=== PATIENT | male | born 1940 | race Two or more races ===

== ENCOUNTER 2024-09-24 10:57 | Emergency (ER) | payer MEDICARE, MEDICAID, SELFPAY ==
[2024-09-24 11:13] VITALS: BP 153/81; PULSE 92; RESP 18; TEMP 37.5; O2SAT 95; BMI 22.6
--- NOTE | 2024-09-24 11:25 | XR_ITS ---
Examination: Foot, right, 3 views Technique: AP, oblique, lateral views foot, 3 views Date and time of exam: September 24, 2024 1143 hrs. Indications: Nonhealing wound involving the first digit this week Findings: The films are severely overpenetrated Prominent osteopenia Suspicious for early cortical erosions ungual tuft tip distal phalanx first digit Impression: Suspicious for early osteomyelitis ungual tuft tip distal phalanx first digit Consider MRI foot without contrast follow-up
--- NOTE | 2024-09-24 11:26 | PD.EDRME ---
Rapid Medical Screening Exam RME Arrival date/time: 09/24/24 10:57 Chief Complaint: Ankle/Foot Injury Time Seen by Provider: 09/24/24 11:05 Vital signs: Vital Signs Temperature 99.5 F 09/24/24 11:13 Pulse Rate 92 09/24/24 11:13 Respiratory Rate 18 09/24/24 11:13 Blood Pressure 153/81 H 09/24/24 11:13 Pulse Oximetry (%) 95 09/24/24 11:13 Oxygen Delivery Method Room Air 09/24/24 11:13 RME Narrative: Redness, pain and wound to right great toe x 2 days. Denies known history of diabetes.
[2024-09-24 12:11] LABS: Basophils % (Auto) 0 % (0-2.5); Eosinophils % (Auto) 0 % (0-10); Hematocrit 41.7 % (41.0-53.0); Hemoglobin 13.9 g/dL (13.5-16.0); Immature Granulocytes % (Auto) 2 % (0-0); Immature Granulocytes Auto 0.19 Thou/mm3 (0.00-0.00); Lymphocytes # (Auto) 0.6 Thou/mm3 (1.0-4.8); Lymphocytes % (Auto) 5 % (10-50); Mean Corpuscular HGB Conc 33.3 g/dl (31.0-37.0); Mean Corpuscular Volume 96 fL (80-100); Monocytes # (Auto) 1.3 Thou/mm3 (0.0-0.8); Monocytes % (Auto) 10 % (0-12); Neutrophils # (Auto) 10.7 Thou/mm3 (1.8-7.7); Neutrophils % (Auto) 84 % (37-80); Nucleated Red Blood Cell % 0 /100 WBC (0); Platelet Count 257 Thou/mm3 (140-440); RDW Standard Deviation 50.6 fL (35.1-43.9); Red Blood Count 4.35 Miln/mm3 (4.50-5.90); White Blood Count 12.8 Thou/mm3 (3.8-10.6)
[2024-09-24 12:42] LABS: Alanine Aminotransferase 22 U/L (10-49); Albumin, Serum 4.5 gm/dL (3.4-4.8); Albumin/Globulin Ratio 2.1 (1.2-2.2); Alkaline Phosphatase 87 U/L (46-116); Anion Gap 4 (7-16); Aspartate Amino Transferase 26 U/L (0-34); BUN/Creatinine Ratio 17 Ratio (12-20); Bilirubin,Total 0.6 mg/dL (0.3-1.2); Blood Urea Nitrogen 10 mg/dL (9-23); C-Reactive Protein 0.5 mg/dL (0.0-0.9); Calcium 9.1 mg/dL (8.3-10.6); Calcium (Corrected) 9.1 mg/dL (8.5-10.1); Carbon Dioxide 25.4 mMol/L (20.0-31.0); Chloride 104 mMol/L (98-107); Creatinine (Component) 0.6 mg/dL (0.6-1.3); Estimated Creatinine Clearance 64.8 mL/min (>60); Globulin 2.1 gm/dL (2.3-3.5); Glucose 89 mg/dL (74-106); Osmolality,Calculated 264 (275-295); Potassium 4.2 mMol/L (3.4-5.1); Procalcitonin < 0.04 ng/ml (0.0-0.49); Sodium 133 mMol/L (136-145); Total Protein 6.6 gm/dL (5.7-8.2); eGFR > 60 See Note
[2024-09-24 12:47] LABS: Sed Rate (ESR) 24 mm/hr (0-20)
--- NOTE | 2024-09-24 12:54 | PC.NURSE ---
PT CAME TO TRIAGE DESK TO ASK IF HE COULD LEAVE AND COME GET RESULTSA ANOTHER DAY. INFORMED THAT XRAY OF FOOT IS ABNORMAL AND HE SHOULD WAIT AND TALK WITH THE DOCTOR. PT STATES THRU CHARACTER ARTIST THAT HE WILL WAIT 30 MORE MINUTES
[2024-09-24 13:38] VITALS: BP 136/78; PULSE 87; RESP 18; TEMP 37.1; O2SAT 95
--- NOTE | 2024-09-24 14:23 | XR_ITS ---
Examination: CTA abdominal aorta iliofemoral runoff. 2-D sagittal coronal reconstructions. 3-D reconstructions, vascular September 24, 2020 1617 hrs. Indications: Redness swelling and pain infection involving the feet and toes this week, diabetic Technique: Multiple CTA images of the abdominal aorta iliofemoral runoff arterial vessels, 2.0 mm slice thickness, post intravenous administration 130 cc Isovue-370 2-D sagittal coronal reconstructions. 3-D reconstructions, vascular 3-D postprocessing, including vascular maximum intensity projection images, 3-D volume rendering Low dose protocols were performed. One or more of the following dose reduction techniques were used; automated exposure control, adjustment of the mA and/or KV according to patient size, use of iterative reconstruction technique. Findings: No renal calculi, hydronephrosis No bowel obstruction or pericecal inflammatory change Right inguinal hernia which contains a portion of the urinary bladder Moderate prostatomegaly Heavy abdominal aortic calcification, transverse dimension infrarenal abdominal aorta 24 mm Heavy calcification common iliac arteries but no significant stenoses Iliac common femoral arteries intact 90% stenosis distal right superficial femoral artery image 287 Right popliteal artery does fill Occlusions, multiple beginning proximal right anterior tibial artery The right posterior tibial artery does fill of the ankle Left superficial femoral artery demonstrates multiple mid 70% plus stenoses and a 90% stenosis in the mid to distal portion, axial image 280 Popliteal artery does fill Similar proximal occlusions of the left anterior tibial artery beginning approximately The left posterior tibial artery does fill to the ankle Impression: 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
--- NOTE | 2024-09-24 14:25 | EDNOTE_ITS ---
<Statement entered by Noemy Jones MD - 09/24/24 19:45> As co-signing physician, I was present and available for consult prn. I concur with the plan and care as documented by the midlevel provider. Lower Extremity Injury RME/HPI General Chief Complaint: Ankle/Foot Injury Stated Complaint: PAIN RIGHT TOE SINCE LAST NIGHT Time Seen by Provider: 09/24/24 11:05 Arrival date/time: 09/24/24 10:57 RME / HPI RME / HPI Narrative: 83-year-old male patient with significant history of hypertension, came in for evaluation regarding right big toe redness and swelling, with extension to the medial aspect of the foot has been ongoing for the last 1 week getting worse last night. Severity of symptoms moderate. Patient denies any fever denies any other complaints no medications taken prior to arrival. Related Data Home Medications ?Medication ?Instructions ?Recorded ?Confirmed diclofenac sodium 75 mg 75 mg PO BID 07/17/23 07/17/23 tablet,delayed release multivitamin 1 tab PO QAM 07/17/23 07/17/23 Previous Rx's ?Medication ?Instructions ?Recorded ibuprofen 600 mg tablet 600 mg PO TID PRN pain #30 tabs 09/24/24 pentoxifylline 400 mg 400 mg PO TID #30 tabs 09/24/24 tablet,extended release sulfamethoxazole 800 1 tab PO Q12H #20 tabs 09/24/24 mg-trimethoprim 160 mg tablet (Bactrim DS) Allergies Allergy/AdvReac Type Severity Reaction Status Date / Time No Known Allergies Allergy Verified 09/24/24 11:04 Review of Systems Review of Systems Narrative Review of Systems: Review of system reviewed and within normal limits except mentioned in HPI ED Exam Narrative Physical exam: VITAL SIGNS: Reviewed. GENERAL APPEARANCE: Alert and interactive, follows commands, no acute distress, HEAD AND FACE: Non-traumatic. ENT: PERRL, pink conjunctivitis, eyelid no trauma, Mucous membrane moist. NECK: Supple, nontender, no nuchal rigidity. CHEST: No tenderness, no crepitus, no paradoxical movement, no retractions. LUNGS: Clear, well ventilated, symmetric, no rales, no wheezing, no ronchi, no stridor, good breath sounds bilaterally. HEART: Regular rate, regular rhythm, no murmur, no gallops. ABDOMEN: Soft, positive bowel sounds, nondistended, no guarding, nontender, no rebound, no masses, RECTAL: Deferred. GENITAL: Deferred. NEUROLOGICAL: Gross motor function intact sensory function intact, Appropriate for age. MUSCULOSKELETAL: low back nontender, full range of motion. EXTREMITIES: Right great to swelling, tenderness, with redness noted on the medial aspect of the foot, full range of motion. SKIN: Color pink, dry, no rash, no lacerations, no abrasions, no contusions. LYMPHATICS: Deferred. Course Quality Measures none Orders Category Date Time Status CT Screening NOW Care 09/24/24 14:[address] angio abd ilio fem runoff Stat Exams 09/24/24 14:23 Completed XR foot comp RT min 3V Stat Exams 09/24/24 11:25 Completed CBC Stat Lab 09/24/24 11:53 Completed CMP [Comprehensive Metabolic Panel] Stat Lab 09/24/24 11:53 Completed CRP [C-Reactive Protein] Stat Lab 09/24/24 11:53 Completed ESR [Sed Rate (ESR)] Stat Lab 09/24/24 11:53 Completed Lactate (Lactic Acid) Stat Lab 09/24/24 11:53 Completed Procalcitonin Stat Lab 09/24/24 11:53 Completed HYDROcodone*/APAP 5/325 [[place] 5/325] Med 09/24/24 15:25 Discontinued 1 tab PO X1 ONE cefTRIAXone/D5w 1gm IV premix [Rocephin/D5w 1gm IV Med 09/24/24 14:24 Discontinued premix] 50 ml IV X1 Vital Signs Vital signs: Vital Signs Temperature 99.5 F 09/24/24 11:13 Pulse Rate 92 09/24/24 11:13 Respiratory Rate 18 09/24/24 11:13 Blood Pressure 153/81 H 09/24/24 11:13 Pulse Oximetry (%) 95 09/24/24 11:13 Oxygen Delivery Method Room Air 09/24/24 11:13 Extremity Injury, Lower MDM Narrative MDM Narrative:: Pt has normal mental status and adequate capacity to make medical decisions. Oriented x 4. The patient refuses evaluation and treatment and wants to be discharged. The risks have been explained to the patient, including progression of possible worsening of current disease, worsening illness, chronic pain, permanent disability and . The benefits of evaluation and treatment have also been explained, including the availability and proximity of nurses, physicians, monitoring, diagnostic testing, and treatments. The patient was able to understand and state the risks and benefits of AMA.Patient had the opportunity to ask questions about their medical condition. He left hospital against medical advice. Patient data External records reviewed:: None Clinical information provided by:: family Social determinants that could affect healthcare access:: none Patient has the following chronic illnesses:: None How is presenting disease/condition affected by chronic disease/condition?: exacerbated by Evaluation data The following diagnostics were reviewed and interpreted by me:: lab results and radiology exam(s) Lab and/or radiology exams considered but not ordered:: None Interpretation Summary: CT angiogram of the abdomen pelvis with iliofemoral runoff showed 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 Medications / Prescriptions Medications or Prescriptions considered but not ordered:: None supraduction IV and Medication administrations:: Medication Administration History Discontinued Medications Hydrocodone Bitart/Acetaminophen (Hydrocodone/Apap 5/325 Tablet) 1 tab PO X1 ONE Stop: 09/24/24 15:26 Last Admin: 09/24/24 15:33 Dose: 1 tab Documented By: COREY Ceftriaxone Sodium/Dextrose (Rocephin/D5w 1gm Iv Premix) 50 mls @ 100 mls/hr IV X1 ONE Stop: 09/24/24 14:53 Last Infusion: 09/24/24 17:08 Dose: Infused Documented By: Admin: 09/24/24 15:20 Dose: 100 mls/hr Documented By: COREY Ceftriaxone IV and [place] Consultations Consultation(s) initiated? (list below): No Consultation #1 (Physician, Specialty, Details): Patient AMA Diagnosis Extremity Injury, Lower Differential Diagnosis: other (Cellulitis toe, PAD, arterial occlusion to the foot) Most likely diagnosis given after review of the tests above:: None Admission Indicated Admission indicated?: not indicated Admission Request Was there a request for admission?: No Disposition Plan Disposition Plan: other (specify) Discharge Plan Plan Patient Disposition: Left Against Medical Advice Prescriptions/Referrals Prescriptions/Med Rec: New pentoxifylline 400 mg tablet extended release 400 mg PO TID Qty: 30 0RF Rx Instructions: must administer with a meal/food sulfamethoxazole-trimethoprim [Bactrim DS] 800-160 mg tablet 1 tab PO Q12H Qty: 20 0RF ibuprofen 600 mg tablet 600 mg PO TID PRN (Reason: pain) Qty: 30 0RF No Action multivitamin Tablet 1 tab PO QAM diclofenac sodium 75 mg Tablet,Delayed Release (Dr/Ec) 75 mg PO BID Referrals: Dennis Diaz [Primary Care Provider] - In 1 week Problem List Clinical Impression: Cellulitis of great toe, left Patient/Caregiver Discharge Instructions Print Language: Kazakh
[2024-09-24] MEDS: cefTRIAXone/D5w 1gm IV premix 50 ML IV (15:20)
[2024-09-24] MEDS: HYDROcodone/APAP 5/325 TABLET 1 TAB PO (15:33)
[2024-09-24 16:53] VITALS: BP 150/109; PULSE 104; RESP 18; TEMP 37.2; O2SAT 95
== END 2024-09-24 17:34 | disposition left against medical advice (07) ==
PROVIDERS: Physician Assistant; Emergency Provider Emergency Medicine; PCP Physician Assistant
DX: L03.032 Cellulitis of left toe (principal); I10 Essential (primary) hypertension
CPT/HCPCS: 36415; 73630; 75635; 80053; 83605; 84145; 85025; 85652; 86140; 96365; 96366; 99285; A4649; J0696; Q9967; A9270

== ENCOUNTER 2024-10-21 09:58 | Inpatient (IN) | payer MEDICARE, MEDICAID, SELFPAY ==
--- NOTE | 2024-10-21 | XR_ITS ---
Examination: MRI right foot, without contrast Date and time of exam: October 21, 2024 at 1604 hours INDICATIONS: Injury to the foot 6 weeks ago with redness swelling and pain involving the first digit, the right first digit is plaque Technique: Multiple axial sagittal and coronal images of the right foot have been obtained with the Siemens high-resolution 1.5 Melinda MRI scanner. Images obtained include T2-weighted fat-suppressed sagittal sections, TR 3500, TE 46, T2 weighted coronal fat suppressed images, TR 3050, TE 84, T2-weighted transverse fat suppressed images, TR 3260, TE 63, proton density transverse images, TR 4720 TE 46, and T1 weighted coronal images, TR 560, TE 13. Findings: No christiane cortical bone destruction involving the right first digit or other digits No soft tissue abscess No pathologic fracture Mild edema dorsum of the foot and around the second digit Intact plantar fascia Intact Achilles tendon IMPRESSION: Negative for osteomyelitis Negative for soft tissue abscess
[2024-10-21 10:14] VITALS: BP 121/72; PULSE 88; RESP 20; TEMP 37.1; O2SAT 97; BMI 21.9
--- NOTE | 2024-10-21 10:18 | XR_ITS ---
Examination: Foot, right, 3 views Technique: AP, oblique, lateral views foot, 3 views Date and time of exam: October 21, 2024 1024 hours INDICATIONS: Redness swelling and pain, gangrene involving the toes noticed beginning 2 months ago. FINDINGS: Soft tissue swelling about the first digit Prominent osteopenia No fracture No christiane cortical bone destruction IMPRESSION: No christiane cortical bone destruction Consider MRI right foot follow-up to best assess for early osteomyelitis
--- NOTE | 2024-10-21 10:19 | PD.EDRME ---
Rapid Medical Screening Exam RME Arrival date/time: 10/21/24 09:58 83-year-old male presents to the emergency department today with complaints of infection to the right foot patient was seen by PCP and referred to ER for possible admission Chief Complaint: Ankle/Foot Injury Time Seen by Provider: 10/21/24 10:04 Vital signs: Vital Signs Temperature 98.8 F 10/21/24 10:14 Pulse Rate 88 10/21/24 10:14 Respiratory Rate 20 10/21/24 10:14 Blood Pressure 121/72 10/21/24 10:14 Pulse Oximetry (%) 97 10/21/24 10:14 Oxygen Delivery Method Room Air 10/21/24 10:14
[2024-10-21 10:45] LABS: Lactate (Lactic Acid) 0.7 mMol/L (0.4-2.0)
[2024-10-21 10:48] LABS: Basophils % (Auto) 0 % (0-2.5); Eosinophils % (Auto) 0 % (0-10); Hemoglobin 13.3 g/dL (13.5-16.0); Immature Granulocytes % (Auto) 2 % (0-0); Immature Granulocytes Auto 0.14 Thou/mm3 (0.00-0.00); Lymphocytes # (Auto) 0.6 Thou/mm3 (1.0-4.8); Lymphocytes % (Auto) 8 % (10-50); Mean Corpuscular HGB Conc 33.3 g/dl (31.0-37.0); Mean Corpuscular Volume 96 fL (80-100); Monocytes % (Auto) 12 % (0-12); Neutrophils # (Auto) 6.5 Thou/mm3 (1.8-7.7); Neutrophils % (Auto) 79 % (37-80); Nucleated Red Blood Cell % 0 /100 WBC (0); Platelet Count 218 Thou/mm3 (140-440); RDW Standard Deviation 51.1 fL (35.1-43.9); Red Blood Count 4.16 Miln/mm3 (4.50-5.90); White Blood Count 8.3 Thou/mm3 (3.8-10.6)
[2024-10-21 11:07] LABS: INR 0.9 (0.9-1.3); Prothrombin Time 10.2 Seconds (9.0-12.2)
[2024-10-21 11:15] LABS: Alanine Aminotransferase 27 U/L (10-49); Albumin, Serum 4.3 gm/dL (3.4-4.8); Albumin/Globulin Ratio 2.2 (1.2-2.2); Alkaline Phosphatase 88 U/L (46-116); Anion Gap 5 (7-16); Aspartate Amino Transferase 22 U/L (0-34); BUN/Creatinine Ratio 28 Ratio (12-20); Bilirubin,Total 0.4 mg/dL (0.3-1.2); Blood Urea Nitrogen 14 mg/dL (9-23); C-Reactive Protein 1.8 mg/dL (0.0-0.9); Calcium 8.7 mg/dL (8.3-10.6); Calcium (Corrected) 8.7 mg/dL (8.5-10.1); Carbon Dioxide 26.7 mMol/L (20.0-31.0); Chloride 106 mMol/L (98-107); Creatinine (Component) 0.5 mg/dL (0.6-1.3); Estimated Creatinine Clearance 77.8 mL/min (>60); Glucose 93 mg/dL (74-106); Osmolality,Calculated 276 (275-295); Potassium 4.2 mMol/L (3.4-5.1); Procalcitonin 0.07 ng/ml (0.0-0.49); Sodium 138 mMol/L (136-145); Total Protein 6.3 gm/dL (5.7-8.2); eGFR > 60 See Note
--- NOTE | 2024-10-21 11:36 | EDNOTE_ITS ---
ED Extremity Problem RME/HPI General Chief complaint: Ankle/Foot Injury Stated complaint: GANGRENE RIGHT TOE, SENT FOR ADMIT Time Seen by Provider: 10/21/24 10:04 Arrival date/time: 10/21/24 09:58 RME / HPI RME / HPI Narrative: 10/21/24 09:58 83-year-old male presents to the emergency department today with complaints of infection to the right foot patient was seen by PCP and referred to ER for possible admission This section includes all my notes and documentations, including HPI, PE, and ED course.? Michael Manuel MD HPI: 83 year old male presents to the ED sent by inspector circuitry negative for further evaluation and treatment of right foot infection. Patient reports the infection began some time 2 months ago and progressively worsening. Reports redness and pain and warmth. Denies fevers or chills. No other complaints. ROS: All negative except as documented in HPI. Physical Exam: General:? Alert and oriented.? No acute distress when remaining still.?? Eyes:? Conjunctivae and lids clear.? ENT:? No nasal congestion.? Neck:? Supple.? Heart:? RRR.? Lungs:? No respiratory distress.? Good air movement.? No rhonchi, wheezing, rales.?? Abdomen:? Soft and nontender.?? Skin:?Distal right foot remarkable for purpleish color and cyanosis and cold temperature with black big toe. Neuro:? Alert and oriented X 3.?? I reviewed all diagnostic test results. My interpretation of the chest x-ray is no acute findings. My interpretation of the foot x-rays is no acute findings. My review of the foot MRI is negative for abscess and osteomyelitis. Blood tests unremarkable. Right lower extremity CTA pending. Treatment here included?cefepime and vancomycin. Significant improvement At 6 PM on 10/21/2024, the care of the patient was transferred to Dr Varela. Michael Manuel MD Related Data Home Medications ?Medication ?Instructions ?Recorded ?Confirmed diclofenac sodium 75 mg 75 mg PO BID 07/17/23 07/17/23 tablet,delayed release multivitamin 1 tab PO QAM 07/17/23 07/17/23 Previous Rx's ?Medication ?Instructions ?Recorded ibuprofen 600 mg tablet 600 mg PO TID PRN pain #30 tabs 09/24/24 pentoxifylline 400 mg 400 mg PO TID #30 tabs 09/24/24 tablet,extended release sulfamethoxazole 800 1 tab PO Q12H #20 tabs 09/24/24 mg-trimethoprim 160 mg tablet (Bactrim DS) Allergies Allergy/AdvReac Type Severity Reaction Status Date / Time No Known Allergies Allergy Verified 10/21/24 10:03 Review of Systems Review of Systems Systems Reviewed: All systems reviewed, normal except as documented Past Medical History Past Medical History NEUROLOGIC: Negative Neurological Disorders CARDIAC: Negative Cardiac Disorders or Cellulitis RESPIRATORY: Negative Respiratory Disorders GASTROINTESTINAL: Negative Gastrointestinal Disorders GENITOURINARY: Negative Genitourinary Disorders or Renal Disease MUSCULOSKELETAL: Positive Musculoskeletal Disorders and Arthritis (knees) ENT: Positive Cataracts (bilateral) and Glaucoma ENDOCRINE: Negative Endocrine Disorders OTHER HISTORY: Positive Measles Surgical History SURGICAL: Negative Cardiac Surgery or Pacemaker Social History SMOKING STATUS: Light (< 1 pack/day) ED Exam Narrative Physical exam: As noted in HPI Course Quality Measures none Orders Category Date Time Status CT Screening NOW Care 10/21/24 16:58 Active MRI Screening NOW Care 10/21/24 12:42 Active Saline [Insert IV] NOW Care 10/21/24 11:59 Active Straight [In and Out Catheter] X1 Care 10/21/24 11:[address] angio LE RT Stat Exams 10/21/24 16:58 Ordered MR foot RT wo con Stat Exams 10/21/24 Completed XR chest 1V portable Stat Exams 10/21/24 12:43 Completed XR foot comp RT min 3V Stat Exams 10/21/24 10:18 Completed Blood Culture (Lab) Stat Lab 10/21/24 10:34 Received CBC Stat Lab 10/21/24 10:34 Completed CMP [Comprehensive Metabolic Panel] Stat Lab 10/21/24 10:34 Completed CRP [C-Reactive Protein] Stat Lab 10/21/24 10:34 Completed ESR [Sed Rate (ESR)] Stat Lab 10/21/24 10:34 Completed Lactic Acid [Lactate (Lactic Acid)] Stat Lab 10/21/24 10:34 Completed Magnesium Stat Lab 10/21/24 10:34 Completed PT [Prothrombin Time with INR] Stat Lab 10/21/24 10:34 Completed PTT [Partial Thromboplastin Time] Stat Lab 10/21/24 10:34 Completed Procalcitonin Stat Lab 10/21/24 10:34 Completed UA, C/S IF [Urinalysis, C/S if Indicated] Stat Lab 10/21/24 12:43 Ordered Cefepime Inj [Maxipime Inj] 2 gm Med 10/21/24 11:59 Discontinued Sodium Chloride 0.9% (P) [Ns 0.9% (P)] 50 ml IV X1 Vancomycin Inj 2,000 mg Med 10/21/24 11:59 Discontinued Sodium Chloride 0.9% 500 ml [Ns] 500 ml IV X1 Vital Signs Vital signs: Vital Signs Temperature 98.8 F 10/21/24 10:14 Pulse Rate 88 10/21/24 10:14 Respiratory Rate 20 10/21/24 10:14 Blood Pressure 121/72 10/21/24 10:14 Pulse Oximetry (%) 97 10/21/24 10:14 Oxygen Delivery Method Room Air 10/21/24 10:14 Pulse ox is 97% on room air which is adequate. Extremity Problem MDM Narrative MDM Narrative:: Jackie Weiss am scribing for and in the presence of Dr. Manuel. Patient data External records reviewed:: [facility] previous records (I reviewed ED visit on 09/24/2024) Clinical information provided by:: patient and family Social determinants that could affect healthcare access:: none Patient has the following chronic illnesses:: None reported How is presenting disease/condition affected by chronic disease/condition?: no chronic disease Evaluation data The following diagnostics were reviewed and interpreted by me:: lab results and radiology exam(s) Lab and/or radiology exams considered but not ordered:: None Interpretation Summary: Within normal limits but CT of the right foot pending. Medications / Prescriptions Medications or Prescriptions considered but not ordered:: None Medication administrations:: Medication Administration History Discontinued Medications Cefepime HCl 2 gm/ Sodium (Chloride) 50 mls @ 100 mls/hr IV X1 ONE Stop: 10/21/24 12:28 Last Infusion: 10/21/24 15:23 Dose: Infused Documented By: Admin: 10/21/24 14:39 Dose: 100 mls/hr Documented By: YOBANI Vancomycin HCl 2,000 mg/ (Sodium Chloride) 500 mls @ 150 mls/hr IV X1 ONE Stop: 10/21/24 15:18 Last Admin: 10/21/24 15:23 Dose: 150 mls/hr Documented By: YOBANI Comments: medication barcode will not scan, medication double verified with Shiva TELLEZ. Patient given Cefepime and Vancomycin Consultations Consultation(s) initiated? (list below): No Diagnosis Extremity Problem Differential Diagnosis: cellulitis, superficial thrombophlebitis and other (Arterial occlusion, osteomyelitis, sepsis) Most likely diagnosis given after review of the tests above:: Waiting for all diagnostic test results Admission Indicated Admission indicated?: not indicated Explain why admission is indicated or not indicated:: Waiting for all diagnostic test results Admission Request Was there a request for admission?: No Disposition Plan Disposition Plan: other (specify) (Care of the patient was transferred to Dr Varela) Discharge Plan Prescriptions/Referrals Prescriptions/Med Rec: No Action multivitamin Tablet 1 tab PO QAM diclofenac sodium 75 mg Tablet,Delayed Release (Dr/Ec) 75 mg PO BID pentoxifylline 400 mg tablet extended release 400 mg PO TID Qty: 30 0RF Rx Instructions: must administer with a meal/food sulfamethoxazole-trimethoprim [Bactrim DS] 800-160 mg tablet 1 tab PO Q12H Qty: 20 0RF ibuprofen 600 mg tablet 600 mg PO TID PRN (Reason: pain) Qty: 30 0RF Referrals: Mehul Lackey MD [Primary Care Provider] - In 1 week Problem List Clinical Impression: Cold right foot Patient/Caregiver Discharge Instructions Print Language: Finnish
[2024-10-21 11:57] LABS: Sed Rate (ESR) 25 mm/hr (0-20)
--- NOTE | 2024-10-21 12:43 | XR_ITS ---
Examination: AP chest single view TECHNIQUE: AP sitting portable chest single view Exam date and time: October 21, 2024 at 1321 hours INDICATIONS: Shortness of breath today. FINDINGS: No significant cardiac enlargement Ectatic enlarged thoracic aorta Significant biophysical parenchymal disease Bronchial sutures left upper lobe Prominent osteopenia IMPRESSION: Significant parenchymal disease in the upper lung zones, differential would include infectious processes including active tuberculosis, consider high resolution CT chest without contrast follow-up
[2024-10-21 13:43] LABS: Magnesium 2.2 mg/dL (1.6-2.6)
[2024-10-21] MEDS: CEFEPIME INJ 2 GM in SODIUM CHLORIDE 0.9% (P) 50 ML IV (14:39)
[2024-10-21 15:01] VITALS: BP 149/59; PULSE 70; RESP 16; TEMP 36.8; O2SAT 96
[2024-10-21] MEDS: Vancomycin Inj 2,000 MG in SODIUM CHLORIDE 0.9% 500 ML 500 ML 150 MG IV (15:23)
--- NOTE | 2024-10-21 16:58 | XR_ITS ---
Examination: CTA right lower extremity with intravenous contrast 2-D reconstructions 3-D reconstructions, vascular Date and time of exam: October 21, 2024 1821 hours INDICATIONS: Gangrene right toe right foot discoloration numbness redness and pain several days CTDI: vol (mGy) 6.39 DLP: (mGycm) 301 Technique: Multiple CT axial images right lower extremity, 1.5 mm slice thickness 3-D angiographic renderings, 3-D volume renderings, 3D post processing, vascular maximum intensity projections obtained. Contrast administered is 100 cc Isovue-370. Low dose protocols were performed. One or more of the following dose reduction techniques were used; automated exposure control, adjustment of the mA and/or KV according to patient size, use of iterative reconstruction technique. Findings: Heavy calcification common iliac arteries, aneurysmal dilatation right common iliac artery 15 mm, left common iliac artery 11 mm Aneurysmal dilatation right internal iliac artery 16 mm Incidental note right inguinal hernia containing a portion of the urinary bladder, axial image 50 50% stenosis mid right superficial femoral artery axial image 143 90% plus short segment stenosis mid to distal right superficial femoral artery axial image 164 Right popliteal artery intact Multiple short segment occlusions of the main continuation trunk with no filling of this trunk in the lower leg above the ankle Multiple short segment occlusions of the proximal right anterior tibial artery with no filling in the distal third of the lower leg Right posterior tibial artery does fill to the ankle and foot IMPRESSION: Aneurysmal dilatation right common iliac artery, left common iliac artery right internal iliac artery Right inguinal hernia containing a portion of the urinary bladder 50% stenosis mid right superficial femoral artery 90% plus short segment stenosis mid to distal right superficial femoral artery 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
[2024-10-21 17:00] VITALS: BP 165/75; PULSE 98; RESP 17; TEMP 36.8; O2SAT 97
--- NOTE | 2024-10-21 18:02 | PD.EDADDENDU ---
Emergency Room Addendum <Henny Lackey - Last Filed: 10/21/24 19:48> Addendum Narrative: 1800: Care assumed from Dr. Manuel, the previous shift emergency physician. Past medical, surgical, social and family history reviewed. Vitals and home medications reviewed. Results and treatment plan discussed. I will assume the care of the patient at this time and will follow the patient, pending CTA of the RLE. Please refer to the emergency department record for history and examination from initial visit. [facility] medical records reviewed, dated 09/24/24. 1933: Discussed results with the patient at bedside. Patient is agreeable to be admitted. 1940: Discussed case with [Dr. Moore] from [general surgery] regarding [consultation]. Discussed patients ED course, exam findings, labs, and radiology results. Agrees to consult. Will consult an admission to the hospitalist. 1945: Discussed case with [Dr. Bhat] from Hospitalist service regarding admission. Discussed patients ED course, exam findings, labs, and radiology results. The Hospitalist [agrees] to accept the patient for admission. RADIOLOGY RESULTS: [facility] Report Signed Patient: FLORIN OLIVARES [facility]. Record#: [id number] Birthdate: 1940 Age/Sex: 83 / M Location: [facility] Attending Dr: Ordering Physician: Michael Manuel MD Date of Service: 10/21/24 Procedure(s): CT angio LE RT Accession Number(s): [id number] cc: Mehul Lackey MD; Michael Manuel MD; Kory Hogan MD~ Examination: CTA right lower extremity with intravenous contrast 2-D reconstructions 3-D reconstructions, vascular Date and time of exam: October 21, 2024 1821 hours INDICATIONS: Gangrene right toe right foot discoloration numbness redness and pain several days CTDI: vol (mGy) 6.39 DLP: (mGycm) 301 Technique: Multiple CT axial images right lower extremity, 1.5 mm slice thickness 3-D angiographic renderings, 3-D volume renderings, 3D post processing, vascular maximum intensity projections obtained. Contrast administered is 100 cc Isovue-370. Low dose protocols were performed. One or more of the following dose reduction techniques were used; automated exposure control, adjustment of the mA and/or KV according to patient size, use of iterative reconstruction technique. Findings: Heavy calcification common iliac arteries, aneurysmal dilatation right common iliac artery 15 mm, left common iliac artery 11 mm Aneurysmal dilatation right internal iliac artery 16 mm Incidental note right inguinal hernia containing a portion of the urinary bladder, axial image 50 50% stenosis mid right superficial femoral artery axial image 143 90% plus short segment stenosis mid to distal right superficial femoral artery axial image 164 Right popliteal artery intact Multiple short segment occlusions of the main continuation trunk with no filling of this trunk in the lower leg above the ankle Multiple short segment occlusions of the proximal right anterior tibial artery with no filling in the distal third of the lower leg Right posterior tibial artery does fill to the ankle and foot IMPRESSION: Aneurysmal dilatation right common iliac artery, left common iliac artery right internal iliac artery Right inguinal hernia containing a portion of the urinary bladder 50% stenosis mid right superficial femoral artery 90% plus short segment stenosis mid to distal right superficial femoral artery 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 Dictated By: Kory Hogan MD Signed By: <Electronically signed by Kory Hogan MD in [place]> 10/21/241900 <Maury Varela MD - Last Filed: 10/21/24 23:38> Addendum Narrative: 1800: Care assumed from Dr. Manuel, the previous shift emergency physician. Past medical, surgical, social and family history reviewed. Vitals and home medications reviewed. Results and treatment plan discussed. I will assume the care of the patient at this time and will follow the patient, pending CTA of the RLE. Please refer to the emergency department record for history and examination from initial visit. [facility] medical records reviewed, dated 09/24/24. This included a CTA which shows chronic occlusive disease of his right lower extremity. It is very similar to the CTA results done today see below. On my encounter with the patient we discussed his current visit and his visit in September. He seems quite unclear as to what happened in September, where he was able to follow-up with his primary care doctor at [facility] who referred him to the configuration management architect today who referred him here. He does not recall what kind of the doctor he saw today, however call referral does confirm his configuration management architect. On review of the electronic medical record he had mild erythema and early cellulitis in September, and today now he has got a significant dry gangrene. I suspect a component of dementia and lack of awareness of his current condition has allowed him to go [place] [facility] [place] to see a configuration management architect and then come back here to the emergency department. Due to his cognitive status I am concerned for his ability to follow-up as an outpatient and therefore will discuss the case with possible need for amputation with general surgery, controlled here in the hospital setting. I discussed this with the patient and if need be he is agreeable to amputation of his toes if this would save his foot . 1933: Discussed results with the patient at bedside. Patient is agreeable to be admitted. 1940: Discussed case with [Dr. Moore] from [general surgery] regarding [consultation]. Discussed patients ED course, exam findings, labs, and radiology results. Agrees to consult. Will consult an admission to the hospitalist. 1945: Discussed case with [Dr. Bhat] from Hospitalist service regarding admission. Discussed patients ED course, exam findings, labs, and radiology results. The Hospitalist [agrees] to accept the patient for admission. RADIOLOGY RESULTS: [facility] Report Signed Patient: FLORIN OLIVARES. Record#: [id number] Birthdate: 1940 Age/Sex: 83 / M Location: [facility] Attending Dr: Ordering Physician: Michael Manuel MD Date of Service: 10/21/24 Procedure(s): CT angio LE RT Accession Number(s): [id number] cc: Mehul Lackey MD; Michael Manuel MD; Kory Hogan MD~ Examination: CTA right lower extremity with intravenous contrast 2-D reconstructions 3-D reconstructions, vascular Date and time of exam: October 21, 2024 1821 hours INDICATIONS: Gangrene right toe right foot discoloration numbness redness and pain several days CTDI: vol (mGy) 6.39 DLP: (mGycm) 301 Technique: Multiple CT axial images right lower extremity, 1.5 mm slice thickness 3-D angiographic renderings, 3-D volume renderings, 3D post processing, vascular maximum intensity projections obtained. Contrast administered is 100 cc Isovue-370. Low dose protocols were performed. One or more of the following dose reduction techniques were used; automated exposure control, adjustment of the mA and/or KV according to patient size, use of iterative reconstruction technique. Findings: Heavy calcification common iliac arteries, aneurysmal dilatation right common iliac artery 15 mm, left common iliac artery 11 mm Aneurysmal dilatation right internal iliac artery 16 mm Incidental note right inguinal hernia containing a portion of the urinary bladder, axial image 50 50% stenosis mid right superficial femoral artery axial image 143 90% plus short segment stenosis mid to distal right superficial femoral artery axial image 164 Right popliteal artery intact Multiple short segment occlusions of the main continuation trunk with no filling of this trunk in the lower leg above the ankle Multiple short segment occlusions of the proximal right anterior tibial artery with no filling in the distal third of the lower leg Right posterior tibial artery does fill to the ankle and foot IMPRESSION: Aneurysmal dilatation right common iliac artery, left common iliac artery right internal iliac artery Right inguinal hernia containing a portion of the urinary bladder 50% stenosis mid right superficial femoral artery 90% plus short segment stenosis mid to distal right superficial femoral artery 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 Dictated By: Kory Hogan MD Signed By: <Electronically signed by Kory Hogan MD in [place]> 10/21/24 2132
[2024-10-21 19:40] VITALS: BP 161/89; PULSE 87; RESP 18; TEMP 36.8; O2SAT 97
[2024-10-21 20:03] LABS: Collection Type, Urine Clean Catch; Squamous Epithelial Cell,Urine 0 /hpf (0-5); WBC,Urine 0 /hpf (0-5)
[2024-10-21 20:11] LABS: Bilirubin,Urine Negative (Negative); Blood,Urine Negative (Negative); Clarity,Urine Clear (Clear/Hazy); Color,Urine Colorless (Lt Yel-Yel); Culture Indicated,Urine Not Indicated; Glucose, Urine Negative (Negative); Ketones,Urine Negative (Negative); Leukocyte Esterase,Urine Negative (Negative); Nitrite,Urine Negative (Negative); Protein,Urine Negative (Neg - Trace); RBC,Urine < 1 /hpf (0-3); Specific Gravity,Urine 1.044 (1.001-1.035); Urobilinogen,Urine Negative mg/dL (0.0-1.0)
--- NOTE | 2024-10-21 20:20 | EVENTNT_ITS ---
Documentation for date of: 10/21/24 Event Note Event Note: The patient is an 83-year-old male presenting with a progressively worsening infection of the right foot, referred by a geological survey field assistant for further evaluation and treatment. The patient reports the onset of symptoms approximately two weeks ago following an injury in which he tripped on a rock, causing trauma to his right great toe, including avulsion of the toenail. He has been applying a self-made herbal remedy consisting of boiled avocado and guava leaves mixed with garlic to the affected area, which he reports alleviated the pain. However, he notes discoloration of the toe since initiating this treatment. On further discussion, he reports no current pain in the affected area but describes prior warmth, redness, and mild pain localized to the right great toe. He denies systemic symptoms such as fever or chills. He has a remote history of lung resection following a traumatic lung injury in 1965 and a history of arthritis. His only medication use involves qeni-pvw-kauiyjf vitamins. He smokes approximately one pack of cigarettes every three days and consumes alcohol occasionally, with his last drink about 20 days ago. Emergency room evaluation revealed vital signs within normal limits (temperature 98.8?F, heart rate 88 bpm, respiratory rate 20, blood pressure 121/72 mmHg, and oxygen saturation 97% on room air). Laboratory findings were largely unremarkable, including WBC 8.3, hemoglobin 13.3, and CRP 1.8. MRI ruled out osteomyelitis, but CTA demonstrated severe obstructive arterial disease in the right lower extremity, including 90%+ stenosis in the ckx-xr-qhtcfm right superficial femoral artery and multiple short-segment occlusions below the knee, with no distal filling in the anterior tibial artery. Given the patient?s living situation, which poses challenges for outpatient follow-up, and the severity of vascular disease complicating the infection, a surgical consultation was obtained. The patient is admitted for further management, including potential debridement or amputation of the affected toe. Assessment and Plan: #Right big/second toe gangrene: - Likely secondary to severe peripheral arterial disease and localized infection - Surgery consultation for evaluation of the need for debridement or possible amputation - Wound care management with regular dressing changes and infection control - Hold antibiotic now - Pain management as needed #Peripheral arterial disease: - Severe obstructive arterial disease identified on CTA - Optimize perfusion and manage risk factors contributing to PAD #Smoking cessation: - Strongly advised to cease smoking to improve vascular health and wound healing - Offer nicotine replacement therapy and counseling to support cessation efforts
--- NOTE | 2024-10-21 20:25 | ESHP_ITS ---
Documentation for date of: 10/21/24 HPI History of Present Illness Chief complaint: Black Right 1st Toe History of present illness: HPI: Patient is a kazakh speaking male, interview facilitated by registered health care interpretor. Patient is an 83-year-old male past medical history significant for peripheral arterial disease and tobacco dependence. The patient is an 83-year-old male presenting with a progressively worsening infection of the right foot, referred by a long chain dyeing machine operator for further evaluation and treatment. The patient reports the onset of symptoms approximately two weeks ago following an injury in which he tripped on a rock, causing trauma to his right great toe, including avulsion of the toenail. He has been applying a self-made herbal remedy consisting of boiled avocado and guava leaves mixed with garlic to the affected area, which he reports alleviated the pain. However, he notes discoloration of the toe since initiating this treatment. On further discussion, he reports no current pain in the affected area but describes prior warmth, redness, and mild pain localized to the right great toe. He denies systemic symptoms such as fever or chills. He has a remote history of lung resection following a traumatic lung injury in 1965 and a history of arthritis. His only medication use involves hwky-igp-rtgskmp vitamins. He smokes approximately one pack of cigarettes every three days and consumes alcohol occasionally, with his last drink about 20 days ago. Emergency room evaluation : vital signs within normal limits (temperature 98.8?F, heart rate 88 bpm, respiratory rate 20, blood pressure 121/72 mmHg, and oxygen saturation 97% on room air). Laboratory findings were largely unremarkable, including WBC 8.3, hemoglobin 13.3, and CRP 1.8. MRI ruled out osteomyelitis, but CTA demonstrated severe obstructive arterial disease in the right lower extremity, including 90%+ stenosis in the vvo-ow-jgohzq right superficial femoral artery and multiple short-segment occlusions below the knee, with no distal filling in the anterior tibial artery. Given the patient?s living situation, which poses challenges for outpatient follow-up, and the severity of vascular disease complicating the infection, a surgical consultation was obtained. The patient is admitted for further management, including potential debridement or amputation of the affected toe. General surgery Dr. Jones consulted and is closely following the case. Appreciate recommendations Review of Systems Review of Systems Narrative Review of Systems: GENERAL: Denies fever/chills or diaphoresis. HEENT: Denies headaches or visual changes. Denies discharge. Neuro: Denies unusual weakness or difficulty speaking. CARDIO: Denies chest pain or palpitations. PULM: Denies SOB, couging or wheezing. GI: Denies abdominal pain, N/V/C/D. Reports having BMs. URO: Denies buring/itching/pain/urinary changes. MSK/EXT/SKIN: Denies joint/skeletal/muscle pain, issues/changes in upper or lower extremities, itchiness, or superficial pain. PSYCH: Cooperative, pleasant mood & affect. The rest of the review of systems is otherwise negative. Exam Vital Signs Temp Pulse Resp BP Pulse Ox O2 Del Method 98.3 F 87 18 161/89 H 97 Room Air 10/21/24 19:40 10/21/24 19:40 10/21/24 19:40 10/21/24 19:40 10/21/24 19:40 10/21/24 19:40 Narrative Exam Constitutional Alert, oriented x 3 and comfortable. ELderly Male HEENT Vision grossly intact. Patent nares. Trachea midline Respiratory Chest normal on inspection and clear auscultation bilaterally Cardiovascular S1 and S2 audible, RRR. No murmurs carotid bruit. No gross JVD. Abdominal Soft and non tender to palpation in all quadrants. BS + Genitourinary No bladder tenderness, no flank pain. Normal to palpation Musculoskeletal Extremities tone within normal limits. No LE edema. Neurological CN II - XII grossly intact. Extremity motor and sensation grossly intact. Skin Warm, dry and intact. No apparent lesions. Right first and second toes black, cold to touch, absent dorsalis pedis, posterior tibial, popliteal pulses bilaterally. Absent left femoral pulse, present right femoral pulse. Psychiatric Patient has good affect, is cooperative Results: Labs 10/21/24 10:34 10/21/24 10:34 Labs: Short CBC 10/21/24 Range/Units 10:34 WBC 8.3 (3.8-10.6) Thou/mm3 Hgb 13.3 L (13.5-16.0) g/dL Hct 40.0 L (41.0-53.0) % Plt Count 218 D (140-440) Thou/mm3 BMP 10/21/24 10:34 Sodium 138 Potassium 4.2 Chloride 106 Carbon Dioxide 26.7 BUN 14 Creatinine 0.5 L Glucose 93 Calcium 8.7 Liver Function 10/21/24 Range/Units 10:34 Total Bilirubin 0.4 (0.3-1.2) mg/dL AST 22 (0-34) U/L ALT 27 (10-49) U/L Alkaline Phosphatase 88 (46-116) U/L Albumin 4.3 (3.4-4.8) gm/dL Urine 10/21/24 Range/Units 19:53 Urine Color Colorless A (Lt Yel-Yel) Urine Clarity Clear (Clear/Hazy) Urine pH 7.0 (5.0-7.0) Ur Specific [place] 1.044 H (1.001-1.035) Urine Protein Negative (Neg - Trace) Urine Glucose (UA) Negative (Negative) Quality Measures Quality Measures none Advance care planning discussed with:: patient Medications Home Medications and Allergies Home Medications ?Medication ?Instructions ?Recorded ?Confirmed ?Type diclofenac sodium 75 mg 75 mg PO BID 07/17/23 07/17/23 History tablet,delayed release multivitamin 1 tab PO QAM 07/17/23 07/17/23 History Allergies Allergy/AdvReac Type Severity Reaction Status Date / Time No Known Allergies Allergy Verified 10/21/24 10:03 Visit Medications Acetaminophen (Acetaminophen 325 Mg Tablet) 650 mg PO Q6H PRN PRN Reason: Fever >101.5 Stop: 11/20/24 20:17 Hydrocodone Bitart/Acetaminophen (Hydrocodone/Apap 5/325 Tablet) 1 tab PO Q4HR PRN PRN Reason: PAIN SCALE 4-6 (Moderate Stop: 10/26/24 20:17 Heparin Sodium (Porcine) (Heparin Sod Inj 5000 Unit/Ml Vial) 5,000 unit SC Q8HR [facility] Stop: 11/04/24 21:59 Sodium Chloride (Ns) 1,000 mls @ 75 mls/hr IV .[id number] [facility] Stop: 11/20/24 20:29 Discontinued Medications Cefepime HCl 2 gm/ Sodium (Chloride) 50 mls @ 100 mls/hr IV X1 ONE Stop: 10/21/24 12:28 Last Infusion: 10/21/24 15:23 Dose: Infused Vancomycin HCl 2,000 mg/ (Sodium Chloride) 500 mls @ 150 mls/hr IV X1 ONE Stop: 10/21/24 15:18 Last Infusion: 10/21/24 20:24 Dose: Infused Assessment & Plan Plan Patient is an 83-year-old male past medical history significant for peripheral arterial disease and tobacco dependence referred by a long chain dyeing machine operator for further evaluation and treatment. The patient is admitted for further management, including potential debridement or amputation of the affected toe. 1. Critical limb ischemia 2. Peripheral artery disease 3. Right common iliac artery aneurysm 4. Right internal iliac artery aneurysm Patient referred by long chain dyeing machine operator for further evaluation. On exam patient's right great toe and second toe was black. On exam bilateral feet cool to touch, bilateral dorsalis pedis, posterior tibial, popliteal pulses absent. Right femoral pulse palpated, left femoral pulse absent. Lower extremity CTA completed on 10/21/2024 findings include: Heavy calcification common iliac arteries, aneurysmal dilation right common iliac artery 15 mm, left common iliac artery 11. Aneurysmal dilation right internal iliac artery 16 mm. 50% stenosis mid right superficial femoral artery 90% plus short segment stenosis mid to distal right superficial femoral artery Severe obstructive arterial disease and trifurcation arteries bilaterally Multiple short segment occlusion of the proximal right anterior tibial artery. No filling defect in distal common. Main continuation trunk shows multiple short segment occlusions. In the distal third of lower leg Plan: ? Pain control hydrocodone 1 tab p.o. Q4 hourly as needed for pain ? Sodium chloride maintenance IVF at 75 cc/hour ? General Surgery, Dr. Jones consulted and closely following the case. Appreciate recommendations 5. Tobacco dependence Patient started smoking at 9 years old. Approximately [id number] history. Plan: ? Patient extensively counseled and advised on smoking cessation. Patient agreed to think about it. ? Nicotine patch daily Health maintenance: Disposition: General Surgery consult Diet: Regular Lines: pIVs GI Prophylaxis: None Thrombo Prophylaxis: Heparin 5000 u sc Q 8 hrly Code status: FULL CODE Plan of care discussed with Attending Dr. Home Marsh MD PGY 1 Attending Provider Attestation/Addendum Pt was evaluated and plan formulated together with the housestaff team. I have reviewed the residents note above and agree with most of its content. Please refer to the residents note for additional details.
[2024-10-21 23:13] VITALS: BMI 19.4
[2024-10-21] MEDS: NICOTINE PATCH 14 MG/24 HR PATCH.TD24 TOP (23:18)
[2024-10-21] MEDS: HEPARIN SOD INJ 5000 UNIT/ML VIAL SC (23:18)
[2024-10-21] MEDS: SODIUM CHLORIDE 0.9% 1000 ML 1,000 ML 75 ML IV (23:25)
[2024-10-22] VITALS: BP 142/95; PULSE 83; RESP 18; TEMP 36.3; O2SAT 94
--- NOTE | 2024-10-22 01:33 | PC.NURSE ---
Verified with Dr. Marsh the results of patient's chest x-ray. Per MD, no need to place patient on airborne isolation/precautions.
[2024-10-22 04:00] VITALS: BP 134/76; PULSE 76; RESP 18; TEMP 36.3; O2SAT 91
[2024-10-22] MEDS: HEPARIN SOD INJ 5000 UNIT/ML VIAL SC ×2 (05:14→14:10)
[2024-10-22 06:36] LABS: Basophils % (Auto) 0 % (0-2.5); Eosinophils % (Auto) 0 % (0-10); Hematocrit 39.4 % (41.0-53.0); Hemoglobin 12.8 g/dL (13.5-16.0); Immature Granulocytes % (Auto) 1 % (0-0); Lymphocytes # (Auto) 0.8 Thou/mm3 (1.0-4.8); Lymphocytes % (Auto) 10 % (10-50); Mean Corpuscular HGB Conc 32.5 g/dl (31.0-37.0); Mean Corpuscular Hemoglobin 31.2 pg (25.0-35.0); Mean Corpuscular Volume 96 fL (80-100); Monocytes # (Auto) 0.9 Thou/mm3 (0.0-0.8); Monocytes % (Auto) 11 % (0-12); Neutrophils # (Auto) 6.7 Thou/mm3 (1.8-7.7); Neutrophils % (Auto) 78 % (37-80); Nucleated Red Blood Cell % 0 /100 WBC (0); Platelet Count 225 Thou/mm3 (140-440); RDW Standard Deviation 50.3 fL (35.1-43.9); White Blood Count 8.5 Thou/mm3 (3.8-10.6)
[2024-10-22 07:11] LABS: Glucose Estimated Average 120 mg/dL (80-131); Hemoglobin A1C 5.8 % Hgb (4.8-6.0)
[2024-10-22 07:19] LABS: Anion Gap 9 (7-16); BUN/Creatinine Ratio 20 Ratio (12-20); Blood Urea Nitrogen 8 mg/dL (9-23); Calcium 8.5 mg/dL (8.3-10.6); Carbon Dioxide 24.4 mMol/L (20.0-31.0); Cardiac Risk Estimate 3.6 RATIO (4.0-6.7); Chloride 105 mMol/L (98-107); Cholesterol 216 mg/dL (132-200); Creatinine (Component) 0.4 mg/dL (0.6-1.3); Estimated Creatinine Clearance 102.9 mL/min (>60); Glucose 83 mg/dL (74-106); HDL Cholesterol 60 mg/dL (40-60); LDL Cholesterol,Calculated 129 mg/dL (0-130); Osmolality,Calculated 272 (275-295); Potassium 3.8 mMol/L (3.4-5.1); Sodium 138 mMol/L (136-145); Thyroid Stimulating Hormone 16.53 uIU/mL (0.55-4.78); Triglycerides 133 mg/dL (30-150); eGFR > 60 See Note
--- NOTE | 2024-10-22 07:40 | ESPR_ITS ---
Documentation for date of: 10/22/24 Subjective Subjective Interval history: No acute overnight events. Denies any complaints at this time. Tolerating oral intake. Denies fever, chills, headaches, chest pain, sob, cough, GI or urinary symptoms. Exam Vital Signs Temp Pulse Resp BP Pulse Ox O2 Del Method 97.3 F 76 18 134/76 H 91 L Room Air 10/22/24 04:00 10/22/24 04:00 10/22/24 04:00 10/22/24 04:00 10/22/24 04:00 10/22/24 04:00 Narrative Exam GENERAL * Frail appearing adult male, NAD HEENT * NCAT.?VAIBHAV. Oral mucosa is moist. Patent Nares NECK * Supple, nontender, no thyromegaly, no meningismus, no JVD, no step offs CHEST * RRR, no m/g/r * CTAB, no w/r/r. Symmetrical chest rise. No intercostal subcostal retraction * Atraumatic, nontender, no crepitus, symmetrical expansion. ABDOMEN * Soft, flat, nontender. No guarding/rebound tenderness/masses. * Bowel sounds presents EXTREMITIES * Gangrenous changes of distal right first and second digits. * Generalized erythema surrounding right foot. No active bleeding or discharge * Severely diminished, possibly absent pulses bilateral lower extremity SKIN * Warm and dry, no jaundice/rashes. NEUROMUSCULAR * No lumbar or midline, no CVA, no paraspinal muscle spasm or tenderness. * Moves all 4 extremities well, with full ROM and good CSM. * DANIELLE x4, CN II-XII grossly intact. * No focal neurologic deficits. PSYCHIATRY * Normal mood and affect, cooperative, no SI or HI or hallucinations. Objective Labs 10/22/24 06:03 10/22/24 06:03 Labs: Laboratory Results - last 24 hr 10/21/24 10/21/24 10/22/24 10:34 19:53 06:03 WBC 8.3 8.5 RBC 4.16 L 4.10 L Hgb 13.3 L 12.8 L Hct 40.0 L 39.4 L MCV 96 96 MCH 32.0 31.2 MCHC 33.3 32.5 RDW Std Deviation 51.1 H 50.3 H Plt Count 218 D 225 Neut % (Auto) 79 78 Lymph % (Auto) 8 L 10 [place] % (Auto) 12 11 Eos % (Auto) 0 0 Baso % (Auto) 0 0 Neut # (Auto) 6.5 6.7 Lymph # (Auto) 0.6 L 0.8 L [place] # (Auto) 1.0 H 0.9 H Eos # (Auto) 0.0 0.0 Baso # (Auto) 0.0 0.0 Immature Gran # (Auto) 0.14 H 0.10 H Absolute Nucleated RBC 0.00 0.00 Immature Gran % 2 H 1 H Nucleated RBC % 0 0 ESR 25 H PT 10.2 INR 0.9 APTT 24.0 Sodium 138 138 Potassium 4.2 3.8 Chloride 106 105 Carbon Dioxide 26.7 24.4 Anion Gap 5 L 9 BUN 14 8 L Creatinine 0.5 L 0.4 L Estim Creat Clear Calc 77.8 102.9 eGFR > 60 > 60 BUN/Creatinine Ratio 28 H 20 Glucose [address] Glu mg/dL 120 Hemoglobin A1c 5.8 Calculated Osmolality 276 272 L Lactic Acid 0.7 Calcium 8.7 8.5 Corrected Calcium 8.7 Magnesium 2.2 Total Bilirubin 0.4 AST 22 ALT 27 Alkaline Phosphatase 88 C-Reactive Prot, Quant 1.8 H Total Protein 6.3 Albumin 4.3 Globulin 2.0 L Albumin/Globulin Ratio 2.2 Triglycerides 133 Cholesterol 216 H LDL Cholesterol, Calc 129 HDL Cholesterol 60 Cholesterol/HDL Ratio 3.6 L Procalcitonin 0.07 TSH 16.53 H Ur Collection Type Clean Catch Urine Color Colorless A Urine Clarity Clear Urine pH 7.0 Ur Specific [place] 1.044 H Urine Protein Negative Urine Glucose (UA) Negative Urine Ketones Negative Urine Blood Negative Urine Nitrite Negative Urine Bilirubin Negative Urine Urobilinogen (Auto) Negative Ur Leukocyte Esterase Negative Urine RBC < 1 Urine WBC 0 Ur Squamous Epith Cells 0 Urine Bacteria None Ur Culture Indicated? Not Indicated Quality Measures Quality Measures none Advance care planning discussed with:: patient Assessment & Plan Assessment Current Active Medications: Generic Name Dose Route Start Last Admin Trade Name Freq PRN Reason Stop Dose Admin Acetaminophen 650 mg 10/21/24 20:18 Acetaminophen 325 Mg Tablet PO 11/20/24 20:17 Q6H PRN Fever >101.5 Hydrocodone Bitart/Acetaminophen 1 tab 10/21/24 20:18 Hydrocodone/Apap 5/325 Tablet PO 10/26/24 20:17 Q4HR PRN PAIN SCALE 4-6 (Moderate Heparin Sodium (Porcine) 5,000 unit 10/21/24 22:00 10/22/24 05:14 Heparin Sod Inj 5000 Unit/Ml Vial SC 11/04/24 21:59 5,000 unit Q8HR LEILANI Administration Sodium Chloride 1,000 mls @ 75 mls/hr 10/21/24 20:30 10/21/24 23:25 Ns IV 11/20/24 20:29 75 mls/hr .[id number] LEILANI Administration Plan In summary: 83-year-old male with past medical history of peripheral artery disease and tobacco, senting 2 weeks after he stubbed his right foot. Admitted for limb ischemia. General surgery suggested amputation contraindicated given severe PAD. Pending transfer for vascular intervention. 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 MRI right foot negative for soft tissue abscess or osteomyelitis. CTA LE showed aneurysmal dilation of right/left common iliac plus right internal iliac artery, 50% stenosis of R superficial femoral artery, 90% stenosis distal right superficial femoral artery, severe obstruction of trifurcation artery below the knee, multiple short segment occlusion and no filling of proximal right anterior tibial artery, short segment occlusion and no filling in the distal third of lower leg. ED give CEFEPIME and VANCOMYCIN. Afebrile, no leukocytosis. General surgery recommended transfer for vascular intervention, amputation contraindicated given severe PAD. ? Pain control ? IV fluids ? Continue CEFEPIME (10/22 to [present]) ? wound care Hypothyroidism TSH 16.53 ? Pending free T4 Incidental finding Tobacco dependency [id number] history. CXR significant parenchymal disease of upper lung zone, differentials includes infectious process versus TB. Radiology recommended high resolution CT. ? Continue NICOTINE patch daily Health maintenance Diet: Regular diet GI prophylaxis: Not indicated DVT prophylaxis: HEPARIN subcu Antibiotics: CEFEPIME CODE STATUS: Full code Disposition: Pending transfer for vascular intervention. Patient case was discussed with attending, Cooper Doan MD and senior resident Dr. Lyon. Raheem Anthony DO PGYI Attending Provider Attestation/Addendum I have examined the patient, reviewed labs and imaging findings, discussed the case with the resident(s), and reviewed entered orders. I agree with the plan of care as outlined in this note, with these additional summaries/recommendations: Patient seen at bedside. Patient admitted overnight for right big toe and second toe dry gangrene in the setting of severe peripheral artery disease. Lower extremity CTA showed 50% stenosis mid right superficial femoral artery, 90% stenosis mid to distal right superficial femoral artery, severe obstructive arterial disease in the trifurcation arteries below the knee, multiple short segment occlusions of the proximal right anterior tibial artery with no filling in the distal third of the lower leg. I am unable to palpate pedal pulses on right foot. Patient was started on IV vancomycin and cefepime. Blood cultures taken and pending. General surgery was consulted and reports patient will need amputation of right great toe and second toe at some point although likely will not heal given severe PAD. Discussed findings with surgery to transfer for vascular intervention. Patient updated on the plan and in agreement. Continue nicotine patch. Repeat hematology and chemistry panel in a.m. if patient remains. Dr. Doan
[2024-10-22 08:00] VITALS: BP 149/84; PULSE 76; RESP 16; TEMP 36.4; O2SAT 94
[2024-10-22] MEDS: HYDROcodone/APAP 5/325 TABLET 1 TAB PO ×2 (09:42→15:46)
[2024-10-22 12:00] VITALS: BP 166/78; PULSE 77; RESP 15; TEMP 36.7; O2SAT 95
--- NOTE | 2024-10-22 12:36 | PC.NURSE ---
Dr. Moore at bedside, discussing plan of care with patient. This RN as an bet taker. Dr. Moore is recommending a vascular surgeon to consult on patient, or can be discharged and treated as an outpatient. Dr. Moore discussing Plan of care with Dr. Doan.
--- NOTE | 2024-10-22 12:48 | PD.SURCONS ---
HPI Consult details Consult date: 10/22/24 Reason for consultation narrative: The patient was seen in consultation because of dry gangrene right great toe on cold foot History of present illness: History of present illness revealed that the patient had been having this black discoloration for more than 2 months. He had an injury couple of weeks ago and it became slightly painful. He is not able to ambulate much. She came to the emergency room and was found to have a gangrene of the right great toe and was therefore admitted Past Medical History Past Medical History NEUROLOGIC: Negative Neurological Disorders, Seizures or Head Trauma CARDIAC: Negative Cardiac Disorders, Congestive Heart Failure, Edema or Cellulitis RESPIRATORY: Negative Respiratory Disorders, Chronic Obstructive Pulmonary Disease (COPD), Asthma or Tuberculosis GASTROINTESTINAL: Negative Gastrointestinal Disorders or Hepatitis GENITOURINARY: Negative Genitourinary Disorders or Renal Disease MUSCULOSKELETAL: Positive Musculoskeletal Disorders and Arthritis ENT: Positive Cataracts and Glaucoma; Negative Head Trauma ENDOCRINE: Negative Endocrine Disorders, Diabetes Mellitus Type 1 or Diabetes Mellitus Type 2 HEMATOLOGIC: Negative Blood Disorders or Sickle Cell Disease OTHER HISTORY: Positive Measles; Negative Hospitalization, Autoimmune Disease, Shingles, Falls, Blood Transfusions, Blood Transfusion Reaction, Anesthesia Reactions, Chemotherapy, Radiation Therapy, MRSA, Chicken Pox, Mumps or Cancer Family History FAMILY HISTORY: Negative Family Psychiatric Problems, Family Respiratory Disorders, Family Cardiac Disorders, Family Gastrointestinal Problems, Family Cancer, Family Surgery or Family Anesthesia Reaction Surgical History SURGICAL: Negative Cardiac Surgery or Pacemaker Social History SMOKING STATUS: Current every day smoker Meds Home Medications and Allergies Home Medications ?Medication ?Instructions ?Recorded ?Confirmed ?Type diclofenac sodium 75 mg 75 mg PO BID 07/17/23 07/17/23 History tablet,delayed release multivitamin 1 tab PO QAM 07/17/23 07/17/23 History Allergies Allergy/AdvReac Type Severity Reaction Status Date / Time No Known Allergies Allergy Verified 10/21/24 10:03 Exam Vital Signs Temp Pulse Resp BP Pulse Ox O2 Del Method 98.1 F 77 15 166/78 H 95 Room Air 10/22/24 12:00 10/22/24 12:00 10/22/24 12:00 10/22/24 12:00 10/22/24 12:00 10/22/24 12:00 Narrative Exam Physical examination revealed thin built male who appeared to be in his stated age and he speaks only [place] he is 5 foot 5 inches tall weighing 116 pounds. His vital signs are normal other than mild elevation of the blood pressure Routine Extremities Exam Comments: Examination of the lower extremities revealed the patient has severe vascular occlusive disease. Patient shows classical signs of ischemia over the right foot. The right foot is relatively cold and he has gangrene of the distal half of the right great toe. There is also some discoloration over the second toe especially involving the toenail. No pedal pulses were felt on either arteries on the right foot Results Results: Laboratory Laboratory Narrative: Laboratory test showed normal WBC Results: Imaging Imaging narrative: X-ray of the foot is negative for osteomyelitis. However patient has had a CTA yesterday which showed severe restriction of flow in the distal leg due to occlusion. Assessment & Plan Additional Assessment Additional comments: Impression: Dry gangrene right great toe Severe peripheral artery occlusive disease right side Right inguinal hernia, nonsymptomatic Plan Plan: Patient will require amputation of the right great toe but unfortunately it wound healing because of the severe ischemia. I do not know whether there is any benefit asking the vascular surgeons to evaluate his foot for any angioplasty. From the appearance and CTA it looks like he has a very poor runoff and it is very unlikely that he is going to have increased blood flow to the right leg. The amputation is not urgent because it is dry gangrene and there is no sepsis or signs of infection. If the vascular surgeons can offer something we can transfer him to their service. Any amputation will not heal and he will have increasing gangrene of the amputated site. Even a below-knee amputation at this time looks perilous as it may not heal. I will be glad to provide the toe amputation whenever he needs it.
[2024-10-22 12:55] VITALS: BMI 19.4
[2024-10-22] MEDS: SODIUM CHLORIDE 0.9% 1000 ML 1,000 ML 75 ML IV (14:10)
--- NOTE | 2024-10-22 15:51 | PC.NURSE ---
Patient wants to leave AMA , Called Dr. Anthony. at bedside explaining risks and complications to patient. Patient is persistent that he wants to leave
[2024-10-22 16:00] VITALS: BP 158/74; PULSE 80; RESP 16; TEMP 37; O2SAT 94
--- NOTE | 2024-10-22 16:00 | PD.RESEVENT ---
Documentation for date of: 10/22/24 Event Note Event Note: I received a call around 16:00 for patient wanting to AMA. He was being considered for transfer to a higher level of care for vascular intervention due to peripheral artery disease, expressed a desire to leave the hospital against medical advice. He stated that he wanted to return home to take care of his chickens and possibly go back to [place]. Despite multiple attempts to discuss the risks of leaving, including worsening of his condition and potential complications, he remained firm in his decision. The patient is alert and oriented to person, place, and time (AOX3) and fully understands the risks and benefits of the proposed treatment. He has been informed of the potential consequences of not proceeding with care, including infection, losing his limb(s) or even , but chose to discharge himself. Appropriate discharge instructions were provided, including follow-up care recommendations, and he was encouraged to reconsider his decision if his condition worsens. Patient case was discussed with attending, Cooper Doan MD and senior resident Dr. Lyon. DO ROXANN Dietrich
== END 2024-10-22 16:05 | disposition left against medical advice (07) | DRG 301 ==
LOC: SERX 18:24 → SERHOLD 20:28 → S3NX 22:53
PROVIDERS: Emergency Medicine; Nurse Practitioner Primary Care; Admitting Provider Internal Medicine; Emergency Provider Emergency Medicine; PCP Family Medicine; Visit Provider Internal Medicine
DX: I70.261 Atherosclerosis of native arteries of extremities with gangrene, right leg (principal); I72.3 Aneurysm of iliac artery; F17.210 Nicotine dependence, cigarettes, uncomplicated; E03.9 Hypothyroidism, unspecified; Z53.29 Procedure and treatment not carried out because of patient's decision for other reasons; M19.90 Unspecified osteoarthritis, unspecified site
CPT/HCPCS: 36415; 71045; 73630; 73706; 73718; 80048; 80053; 80061; 81001; 83036; 83605; 83735; 84145; 84443; 85025; 85610; 85652; 85730; 86140; 87040; 87811; A4649; J0692; J1643; J3371; J7030; J7040; J7050; Q9967; A9270

== ENCOUNTER → 2024-12-02 | Outpatient (CLI) | payer MEDICARE, MEDICAID, SELFPAY | END | disposition home or self-care (01) | LOC: SWHD 08:21 | PROVIDERS: PCP Registered Nurse Pediatrics; Referring Provider Registered Nurse Pediatrics; Visit Provider Surgery | DX: I96 Gangrene, not elsewhere classified (principal); L97.512 Non-pressure chronic ulcer of other part of right foot with fat layer exposed; S91.101A Unspecified open wound of right great toe without damage to nail, initial encounter; X58.XXXA Exposure to other specified factors, initial encounter; F17.200 Nicotine dependence, unspecified, uncomplicated; F10.90 Alcohol use, unspecified, uncomplicated | CPT/HCPCS: 11042; 99213; A9270; G0463 ==

== ENCOUNTER → 2024-12-09 | Outpatient (CLI) | payer MEDICARE, MEDICAID, SELFPAY | END | disposition home or self-care (01) | PROVIDERS: PCP Physician Assistant; Referring Provider Physician Assistant; Visit Provider Student in an Organized Health Care Education/Training Program | DX: I96 Gangrene, not elsewhere classified (principal); L97.512 Non-pressure chronic ulcer of other part of right foot with fat layer exposed; S91.101A Unspecified open wound of right great toe without damage to nail, initial encounter; X58.XXXA Exposure to other specified factors, initial encounter; F17.200 Nicotine dependence, unspecified, uncomplicated; F10.90 Alcohol use, unspecified, uncomplicated | CPT/HCPCS: 99213; A9270; G0463 ==

== ENCOUNTER → 2024-12-16 | Outpatient (CLI) | payer MEDICARE, MEDICAID, SELFPAY | END | disposition home or self-care (01) | LOC: SWHD 09:02 | PROVIDERS: PCP Physician Assistant; Referring Provider Physician Assistant; Visit Provider Physician Assistant | DX: I96 Gangrene, not elsewhere classified (principal); L97.512 Non-pressure chronic ulcer of other part of right foot with fat layer exposed; S91.101A Unspecified open wound of right great toe without damage to nail, initial encounter; X58.XXXA Exposure to other specified factors, initial encounter; F17.200 Nicotine dependence, unspecified, uncomplicated; F10.90 Alcohol use, unspecified, uncomplicated | CPT/HCPCS: 99213; A9270; G0463 ==

== ENCOUNTER → 2024-12-23 | Outpatient (CLI) | payer MEDICARE, MEDICAID, SELFPAY | END | disposition home or self-care (01) | LOC: SWHD 09:15 | PROVIDERS: PCP Physician Assistant; Referring Provider Physician Assistant; Visit Provider Student in an Organized Health Care Education/Training Program | DX: I96 Gangrene, not elsewhere classified (principal); L97.512 Non-pressure chronic ulcer of other part of right foot with fat layer exposed; S91.101A Unspecified open wound of right great toe without damage to nail, initial encounter; X58.XXXA Exposure to other specified factors, initial encounter; F17.200 Nicotine dependence, unspecified, uncomplicated; F10.90 Alcohol use, unspecified, uncomplicated | CPT/HCPCS: 11042; A9270 ==

== ENCOUNTER → 2024-12-30 | Outpatient (CLI) | payer MEDICARE, MEDICAID, SELFPAY | END | disposition home or self-care (01) | LOC: SWHD 09:23 | PROVIDERS: PCP Physician Assistant; Referring Provider Physician Assistant; Visit Provider Surgery | DX: I96 Gangrene, not elsewhere classified (principal); L97.512 Non-pressure chronic ulcer of other part of right foot with fat layer exposed; S91.101A Unspecified open wound of right great toe without damage to nail, initial encounter; X58.XXXA Exposure to other specified factors, initial encounter; F17.200 Nicotine dependence, unspecified, uncomplicated; F10.90 Alcohol use, unspecified, uncomplicated | CPT/HCPCS: 11042; A9270 ==

== ENCOUNTER → 2025-01-06 | Outpatient (CLI) | payer MEDICARE, MEDICAID, SELFPAY | END | disposition home or self-care (01) | LOC: SWHD 10:10 | PROVIDERS: PCP Physician Assistant; Referring Provider Physician Assistant; Visit Provider Surgery | DX: I96 Gangrene, not elsewhere classified (principal); L97.512 Non-pressure chronic ulcer of other part of right foot with fat layer exposed; S91.101A Unspecified open wound of right great toe without damage to nail, initial encounter; X58.XXXA Exposure to other specified factors, initial encounter; F17.200 Nicotine dependence, unspecified, uncomplicated; F10.90 Alcohol use, unspecified, uncomplicated | CPT/HCPCS: 11042; A9270 ==

== ENCOUNTER → 2025-01-31 | Outpatient (CLI) | payer MEDICARE, MEDICAID, SELFPAY ==
--- NOTE | 2025-01-31 11:55 | EKG_ITS ---
[facility] Test Date: 2025-01-31 Pat Name: FLORIN OLIVARES Department: Room: - Gender: Male [employer]: VITALYOtilio : 1940 Requested By: Volodymyr Brock Order Number: [id number] Reading MD: Volodymyr Brock Measurements Intervals [place] Rate: 88 P: 32 [place]: 177 QRS: -31 QRSD: 135 T: 14 QT: 376 QTc: 457 Interpretive Statements SINUS RHYTHM MARKED LEFT AXIS DEVIATION [QRS AXIS < -30] RIGHT BUNDLE BRANCH BLOCK [120+ ms QRS DURATION, UPRIGHT V1, 40+ ms S IN I/aVL/V4/V5/V6] Compared to ECG 07/17/2023 08:15:00 Left-axis deviation now present Right bundle-branch block now present Ventricular-paced complex(es) or rhythm no longer present /store/S0/[id number]
[2025-01-31 12:38] LABS: Basophils % (Auto) 0 % (0-2.5); Eosinophils % (Auto) 0 % (0-10); Hemoglobin 12.4 g/dL (13.5-16.0); Immature Granulocytes % (Auto) 0 % (0-0); Immature Granulocytes Auto 0.03 Thou/mm3 (0.00-0.00); Lymphocytes # (Auto) 0.7 Thou/mm3 (1.0-4.8); Lymphocytes % (Auto) 11 % (10-50); Mean Corpuscular HGB Conc 33.5 g/dl (31.0-37.0); Mean Corpuscular Volume 89 fL (80-100); Monocytes # (Auto) 0.7 Thou/mm3 (0.0-0.8); Monocytes % (Auto) 11 % (0-12); Neutrophils # (Auto) 5.3 Thou/mm3 (1.8-7.7); Neutrophils % (Auto) 78 % (37-80); Nucleated Red Blood Cell % 0 /100 WBC (0); Platelet Count 278 Thou/mm3 (140-440); RDW Standard Deviation 46.8 fL (35.1-43.9); Red Blood Count 4.14 Miln/mm3 (4.50-5.90); White Blood Count 6.9 Thou/mm3 (3.8-10.6)
[2025-01-31 12:44] LABS: Partial Thromboplastin Time 27.9 Seconds (22.0-36.0); Prothrombin Time 10.9 Seconds (9.0-12.2)
[2025-01-31 13:02] LABS: Alanine Aminotransferase 10 U/L (10-49); Albumin, Serum 4.1 gm/dL (3.4-4.8); Albumin/Globulin Ratio 1.8 (1.2-2.2); Alkaline Phosphatase 104 U/L (46-116); Anion Gap 7 (7-16); Aspartate Amino Transferase 19 U/L (0-34); BUN/Creatinine Ratio 20 Ratio (12-20); Bilirubin,Total 0.5 mg/dL (0.3-1.2); Blood Urea Nitrogen 12 mg/dL (9-23); Carbon Dioxide 25.6 mMol/L (20.0-31.0); Chloride 106 mMol/L (98-107); Creatinine (Component) 0.6 mg/dL (0.6-1.3); Globulin 2.3 gm/dL (2.3-3.5); Glucose 96 mg/dL (74-106); Osmolality,Calculated 277 (275-295); Potassium 4.4 mMol/L (3.4-5.1); Sodium 139 mMol/L (136-145); Total Protein 6.4 gm/dL (5.7-8.2); eGFR > 60 See Note
== END | disposition home or self-care (01) ==
PROVIDERS: PCP Physician Assistant; Referring Provider Surgery Vascular Surgery; Visit Provider Surgery Vascular Surgery
DX: Z01.818 Encounter for other preprocedural examination (principal); I70.213 Atherosclerosis of native arteries of extremities with intermittent claudication, bilateral legs
CPT/HCPCS: 36415; 80053; 85025; 85610; 85730; 93005